=== PATIENT | female | born 1970 | race Caucasian/White ===

== ENCOUNTER 2017-10-15 09:47 | Emergency (ER) | payer OTHER ==
[~2017-10-15] VITALS: Ht 172.7 cm; Wt 76.6 kg
[~2017-10-15 09:47] MED LIST: CHLO10 PO
[2017-10-15 09:51] VITALS: BP 165/89; PULSE 99; RESP 18; TEMP 99.2; O2SAT 99
--- NOTE | 2017-10-15 10:25 | PD ---
HPI Chief Complaint: Cold / Flu Symptoms Time Seen by Provider: 10:04 Travel History International Travel<30 days: No Contact w/Intl Traveler<30days: No Traveled to known affect area: No History of Present Illness HPI This is a 47-year-old female presented the complaining of right-sided chest pain. Patient states that pain started a week ago, comes and goes, 3 out of 10 , worse when she takes a deep breath in or coughs. Patient has been coughing on and off for the last months and she was treated for bronchitis with Augmentin. Patient states that the cough is sometimes productive of clear sputum but denies any fevers chills or night sweats or weight loss. Patient smokes half a pack a day for the last 25 years, denies any palpitations or sweating or pain in her chest is related to activity. She had a mammogram done last July that was "normal" PFS Past Medical History Medical History: Denies Significant Hx Diminished Hearing: No ?: Not Menopausal: No Dilation and Curettage (D&C): Yes Past Surgical History Section: Yes (x 3) Gynecologic Surgery: Yes (ablation) Other Surgery: Yes (sinus surgery) Social History Alcohol Use: Yes (daily-none in 2 days) Tobacco Use: Yes (1/2 PPD) Substance Use: No Allergies-Medications (Allergen,Severity, Reaction): Coded Allergies: No Known Allergies (Verified Adverse Reaction, Unknown, 10/15/17) Reported Meds & Prescriptions Reported Meds & Active Scripts Active No Active Prescriptions or Reported Medications Review of Systems Except as stated in HPI: all other systems reviewed are Neg Physical Exam Narrative GENERAL: Alert oriented 3 no acute distress. SKIN: Focused skin assessment warm/dry. HEAD: Atraumatic. Normocephalic. EYES: Pupils equal and round. No scleral icterus. No injection or drainage. ENT: No nasal bleeding or discharge. Mucous membranes pink and moist. NECK: Trachea midline. No JVD. CARDIOVASCULAR: Regular rate and rhythm. No murmur appreciated. RESPIRATORY: No accessory muscle use. Clear to auscultation. Breath sounds equal bilaterally. GASTROINTESTINAL: Abdomen soft, non-tender, nondistended. Hepatic and splenic margins not palpable. MUSCULOSKELETAL: No obvious deformities. No clubbing. No cyanosis. No edema. NEUROLOGICAL: Awake and alert. No obvious cranial nerve deficits. Motor grossly within normal limits. Normal speech. PSYCHIATRIC: Appropriate mood and affect; insight and judgment normal. Data Data Last Documented VS Vital Signs Date Time Temp Pulse Resp B/P (MAP) Pulse Ox O2 Delivery O2 Flow Rate FiO2 10/15/17 10:00 Room Air 10/15/17 09:51 99.2 99 18 165/89 (114) 99 Orders Orders Comprehensive Metabolic Panel (10/15/17 10:19) Complete Blood Count With Diff (10/15/17 10:19) D-Dimer (10/15/17 10:19) Troponin I (10/15/17 10:19) Electrocardiogram (10/15/17 ) Chest, Pa & Lat (10/15/17 ) Ed Discharge Order (10/15/17 11:34) Labs Laboratory Tests Test 10/15/17 10:29 White Blood Count 11.5 TH/MM3 Red Blood Count 5.13 MIL/MM3 Hemoglobin 15.6 GM/DL Hematocrit 46.4 % Mean Corpuscular Volume 90.5 FL Mean Corpuscular Hemoglobin 30.5 PG Mean Corpuscular Hemoglobin Concent 33.7 % Red Cell Distribution Width 11.9 % Platelet Count 239 TH/MM3 Mean Platelet Volume 7.9 FL Neutrophils (%) (Auto) 83.4 % Lymphocytes (%) (Auto) 12.2 % Monocytes (%) (Auto) 3.7 % Eosinophils (%) (Auto) 0.3 % Basophils (%) (Auto) 0.4 % Neutrophils # (Auto) 9.7 TH/MM3 Lymphocytes # (Auto) 1.4 TH/MM3 Monocytes # (Auto) 0.4 TH/MM3 Eosinophils # (Auto) 0.0 TH/MM3 Basophils # (Auto) 0.0 TH/MM3 CBC Comment DIFF FINAL Differential Comment D-Dimer Quantitative (PE/DVT) LESS THAN 0.19 MG/L FEU Blood Urea Nitrogen 9 MG/DL Creatinine 0.77 MG/DL Random Glucose 105 MG/DL Total Protein 7.0 GM/DL Albumin 3.7 GM/DL Calcium Level 8.3 MG/DL Alkaline Phosphatase 84 U/L Aspartate Amino Transf (AST/SGOT) 11 U/L Alanine Aminotransferase (ALT/SGPT) 18 U/L Total Bilirubin 0.4 MG/DL Sodium Level 137 MEQ/L Potassium Level 4.1 MEQ/L Chloride Level 105 MEQ/L Carbon Dioxide Level 27.1 MEQ/L Anion Gap 5 MEQ/L Estimat Glomerular Filtration Rate 81 ML/MIN Troponin I LESS THAN 0.02 NG/ML MDM Medical Decision Making Medical Screen Exam Complete: Yes Emergency Medical Condition: Yes Differential Diagnosis Bronchitis, pneumonia, pneumothorax, pulmonary embolism. Narrative Course This is a 47-year-old female presented here complaining of right-sided chest pain that is worse when she coughs. Physical exam is unremarkable, breast exam she does not show any warmness or erythema of the right breast, CBC shows elevated white blood count with left shift and d-dimer is negative, chest x-ray does not show any infiltrates. Believe this patient symptoms could be attributed to bronchitis and I will give her a course of azithromycin. I told the patient that if pain on the right side persists it could be attributed to costochondritis and she can take ibuprofen after finishing the antibiotics. I discussed with the patient symptoms continue to bother her that she may need a CAT scan of the chest to rule out early malignancy given the long smoking history and I also recommended a mammogram. Patient understands and agrees with the plan of care. Diagnosis Primary Impression: Bronchitis Scripts Azithromycin (Zithromax Z-Abad) 250 Mg Dspk 250 MG PO DIRECTED for Infection, #1 DSPK 0 Refills 500 MG (2 tabs) day 1, then 1 tab days 2-5. Prov: Mathieu Broderick MD 10/15/17 Disposition: 01 DISCHARGE HOME Condition: Stable Mathieu Broderick MD Oct 15, 2017 10:25
[2017-10-15 10:48] LABS: AUTOMATED NEUTROPHIL # 9.7 TH/MM3 (1.8-7.7); BASOPHIL % 0.4 % (0.0-2.0); EOSINOPHIL % 0.3 % (0.0-4.0); HEMATOCRIT 46.4 % (35.0-46.0); HEMOGLOBIN 15.6 GM/DL (11.6-15.3); LYMPH % 12.2 % (9.0-44.0); LYMPHOCYTE # 1.4 TH/MM3 (1.0-4.8); MEAN CELL VOLUME 90.5 FL (80.0-100.0); MEAN CORPUSCULAR HEMOGLOBIN 30.5 PG (27.0-34.0); MEAN CORPUSCULAR HGB CONC 33.7 % (32.0-36.0); MEAN PLATELET VOLUME 7.9 FL (7.0-11.0); MONO % 3.7 % (0.0-8.0); MONOCYTE # 0.4 TH/MM3 (0-0.9); NEUT % 83.4 % (16.0-70.0); PLATELET COUNT 239 TH/MM3 (150-450); RED BLOOD COUNT 5.13 MIL/MM3 (4.00-5.30); RED CELL DISTRIBUTION WIDTH 11.9 % (11.6-17.2); WHITE BLOOD COUNT 11.5 TH/MM3 (4.0-11.0)
--- NOTE | 2017-10-15 10:49 | RADRPT ---
EXAM DATE/TIME: 10/15/2017 10:36 [facility] COMPARISON: CHEST SINGLE AP, March 03, 2011, 9:35. INDICATIONS : Right side breast pain, cough. MEDICAL HISTORY : bronchitis SURGICAL HISTORY : None. ENCOUNTER: Initial ACUITY: 1 week PAIN SCORE: 5/10 LOCATION: Right chest FINDINGS: PA and lateral views of the chest demonstrate the lungs to be symmetrically aerated without evidence of mass, infiltrate or effusion. The cardiomediastinal contours are unremarkable. Osseous structure s are intact. CONCLUSION: No acute disease. No significant change has occurred. Rishi Saunders MD on October 15, 2017 at 10:46 Board Certified Radiologist. This report was verified electronically.
[2017-10-15 10:59] LABS: CHLORIDE 105 MEQ/L (98-107); SODIUM (NA) 137 MEQ/L (136-145)
[2017-10-15 11:07] LABS: CALCIUM 8.3 MG/DL (8.5-10.1)
[2017-10-15 11:08] LABS: ALBUMIN 3.7 GM/DL (3.4-5.0); BICARBONATE 27.1 MEQ/L (21.0-32.0); BLOOD UREA NITROGEN 9 MG/DL (7-18); GLUCOSE,RANDOM 105 MG/DL (74-106)
[2017-10-15 11:11] LABS: AST (GOT) 11 U/L (15-37); CREATININE 0.77 MG/DL (0.50-1.00); GLOMERULAR FILTRATION RATE 81 ML/MIN (>89)
[2017-10-15 11:13] LABS: ALT (GPT) 18 U/L (10-53); TOTAL BILIRUBIN ADULT 0.4 MG/DL (0.2-1.0)
[2017-10-15 11:14] LABS: ALKALINE PHOSPHATASE 84 U/L (45-117)
[2017-10-15 11:16] LABS: TROPONIN I LESS THAN 0.02 NG/ML (0.02-0.05)
[2017-10-15 11:34] VITALS: BP 134/83; PULSE 83; RESP 18; O2SAT 98
[2017-10-15] MEDS ORDERED: ZITHTAB PO (11:37)
--- NOTE | 2017-10-15 14:45 | EKG ---
Date Performed: 10/15/2017 Time Performed: 10:25:01 PTAGE: 47 years EKG: Sinus rhythm NORMAL ECG NO PREVIOUS TRACING DOCTOR: Atul Garnica Interpretating Date/Time 10/15/2017 14:43:42
== END 2017-10-15 11:50 | disposition home or self-care (01) ==
LOC: PHED 09:47
DX: J40 Bronchitis, not specified as acute or chronic (principal); D72.829 Elevated white blood cell count, unspecified; R07.89 Other chest pain; F17.200 Nicotine dependence, unspecified, uncomplicated
CPT/HCPCS: 71046; 80053; 84484; 85025; 85379; 93005; 99285